=== PATIENT | male | born 1980 | race Caucasian/White ===

== ENCOUNTER 2019-01-01 18:50 | Inpatient (IN) | payer BC ==
[2019-01-01 19:45] LABS: #Basophils 0.1 thou/uL (0.0-0.2); #Lymphocytes 2.2 thou/uL (1.20-3.40); #Monocytes 0.4 thou/uL (0.11-0.59); #Neutrophils 5.1 thou/uL (1.40-6.50); %Basophils 0.7 % (0.0-1.0); %Eosinophils 0.6 % (0.0-10.0); %Lymphocytes 27.6 % (21.0-51.0); %Monocytes 5.7 % (0.0-10.0); %Neutrophils 65.5 % (42.0-75.0); Hemoglobin 14.8 g/dL (14.0-18.0); Mean Corpuscular HGB CONC 34.2 g/dL (32.0-36.0); Mean Corpuscular Hemoglobin 30.5 pg (27.0-31.0); Mean Corpuscular Volume 89.3 fL (78.0-98.0); Mean Platelet Volume 7.1 fL (7.4-10.4); Platelet Count 289 thou/uL (130-400); RBC Distribution Width 11.6 % (11.5-14.5); Red Blood Cell (RBC) Count 4.86 mill/uL (4.70-6.10); White Blood Cell (WBC) Count 7.8 thou/uL (4.8-10.8)
[2019-01-01 20:07] LABS: ALT (SGPT) 26 U/L (8-55); AST (SGOT) 19 U/L (5-34); Albumin 4.4 g/dL (3.5-5.0); Alkaline Phosphatase 57 U/L (40-150); Anion Gap 14 mmol/L (10-20); BUN (Urea Nitrogen) 10 mg/dL (8.9-20.6); Bilirubin, Total 0.8 mg/dL (0.2-1.2); CK (CPK) 228 U/L (30-200); Calc. Creatinine Clearance 0 mL/min (70-130); Carbon Dioxide 24 mmol/L (22-29); Chloride 103 mmol/L (98-107); Estimated GFR-MDRD Greater than 90; Globulin 2.3 g/dL (2.4-3.5); Glucose 103 mg/dL (70-105); Potassium 3.8 mmol/L (3.5-5.1); Protein, Total 6.7 g/dL (6.0-8.3)
[2019-01-01 20:18] LABS: Sodium 137 mmol/L (136-145)
[2019-01-01 20:34] LABS: CKMB 5.8 ng/mL (0-6.6)
[2019-01-01] MEDS ORDERED: Aspirin Chewable 81 MG TAB ONE (20:35)
--- NOTE | 2019-01-01 20:46 | RAD ---
RADIOGRAPH CHEST 1 VIEW: DATE: 01/01/2019 HISTORY: Chest pain FINDINGS: There is no airspace density, pulmonary edema, or pneumothorax. The lateral costophrenic angles are n ot effaced. IMPRESSION: No acute pulmonary findings.
[2019-01-01] MEDS ORDERED: Enoxaparin Sodium 100 MG/ML SYRINGE ONE (21:35)
[2019-01-01 23:17] LABS: Troponin I 0.876 ng/mL (< 0.028)
[2019-01-02] MEDS ORDERED: Acetaminophen 650 MG Suppository PR PRN (00:05)
[2019-01-02] MEDS ORDERED: Acetaminophen 325 MG TAB PO PRN ×2 (00:05→16:30)
[2019-01-02] MEDS ORDERED: Nitroglycerin 0.4 MG TAB (25 Tab Bottle) SL PRN (00:05)
[2019-01-02] MEDS ORDERED: Ondansetron PF 4 MG/2 ML Vial IVP PRN ×2 (00:05→16:30)
[2019-01-02] MEDS ORDERED: Ondansetron ODT 4 MG TAB PO PRN (00:05)
[2019-01-02] MEDS ORDERED: Atorvastatin Calcium 40 MG TAB PO SCH (00:30)
[2019-01-02 01:03] LABS: Amphetamine Not Detected (NotDetected); Barbiturates Screen Not Detected (NotDetected); Benzodiazepine Screen Not Detected (NotDetected); Cocaine Metabolite Screen Not Detected (NotDetected); Medtox Control Line Valid? VALID (VALID); Medtox Reader # READER 4; Methadone Not Detected (NotDetected); Methamphetamine Not Detected (NotDetected); Opiate Screen Not Detected (NotDetected); Oxycodone Screen Not Detected (NotDetected); Phencyclidine (PCP) Not Detected (NotDetected); THC/Cannabinoid Screen Not Detected (NotDetected); Tricyclic Screen Not Detected (NotDetected)
[2019-01-02 02:24] LABS: Troponin I 0.956 ng/mL (< 0.028)
--- NOTE | 2019-01-02 04:25 | HP ---
PRIMARY CARE DOCTOR: Julio Frazier MD CODE STATUS: Full code. TIME OF EVALUATION: 11:30 p.m. CHIEF COMPLAINT: Chest pain. HISTORY OF PRESENT ILLNESS: This is a 38-year-old male patient with past medical history of no significant medical problems except for his father having heart attack at the age of early 50s. The patient presented with chest pain in the middle of the chest. No specific radiation. The pain was rated as 8/10, associated with exertion. The patient was lifting some boxes and improved when the patient was sitting. Since he has family history, he decided to come to the hospital. In the ER, he was found to have troponin in the range of 0.4 to 0.8 and given the strong history and lack of any other risk factors with positive troponin, the patient has been admitted for known STEMI with consult for Cardiology, possible intervention in the morning. REVIEW OF SYSTEMS: CONSTITUTIONAL: No fever, chills, or generalized weakness. RESPIRATORY: No cough, sputum production, or shortness of breath/ CARDIOVASCULAR: Chest pain. No palpitation. GASTROINTESTINAL: No nausea, vomiting, diarrhea or abdominal pain. MANAGER COMMERCIAL: No dizziness, headache or feeling lightheaded. GENITOURINARY: No burning on urination. EXTREMITIES: No leg swelling. All other systems were reviewed and negative except for the findings mentioned above. PAST MEDICAL HISTORY: The patient has no significant history. PAST SURGICAL HISTORY: Hernia repair. FAMILY HISTORY: Reviewed and no contributory to current presentation. PSYCHIATRIC HISTORY: No previous psych history. SOCIAL HISTORY: No drugs. No alcohol. No smoking history. ALLERGIES: KNOWN ALLERGIES TO PENICILLIN. REPORTED MEDICATIONS: Nexium. PHYSICAL EXAMINATION: VITAL SIGNS: On presentation, blood pressure 148/98 with heart rate 68, respiratory rate was 20, temperature 98.4. GENERAL APPEARANCE: The patient is alert and oriented, not in acute distress. HEENT: Eyes; normal conjunctivae. Moist oral mucosa. Anicteric. No JVD. RESPIRATORY: Bilateral air entry. No rales. No wheezes. Symmetric expansion. CARDIOVASCULAR: Normal rate, regular rhythm. No murmurs. No gallop. No edema. ABDOMEN: Soft. Normal bowel sounds. MUSCULOSKELETAL: Baseline range of motion and strength. SKIN: Warm and intact. No pallor. No rash. No redness. Peripheral pulses are present. Capillary refill seems to be intact. NEURO: No evidence of any new focal weakness. Cranial nerves seems to be intact. PSYCH: The patient is in good mood. No anxiety. Optimal judgment. DIAGNOSTIC STUDIES: EKG was reviewed, the patient has normal sinus rhythm with sinus arrhythmia at the rate of 66, WA 150, QRS 98, QT corrected 410. Chest x- ray showed no acute pulmonary findings. LABORATORY DATA: Reviewed. The patient has white count of 7.8, hemoglobin 14.9 , MCV 89, platelet count 289. Chemistry was normal except for troponin of 0.4, 0.8, 0.956. CK 225 and urine screen was negative. ASSESSMENT AND PLAN: The patient will be placed in the hospital with following medical problems: 1. Jqo-ZB-rlpjzkgiz myocardial infarction. The patient has received Lovenox. The patient has received statins, aspirin, we will consult Cardiology. We will continue to monitor on tele. Most likely will go for cardiac cath in the morning. 2. Deep venous thrombosis prophylaxis. 3. High blood pressure. The patient has no history of hypertension, likely due to acute distress. We will monitor, we will treat accordingly. Job ID: [id number] [facility]
[2019-01-02 06:19] LABS: #Eosinphils 0.1 thou/uL (0.0-0.7); #Lymphocytes 1.6 thou/uL (1.20-3.40); #Monocytes 0.5 thou/uL (0.11-0.59); #Neutrophils 3.9 thou/uL (1.40-6.50); %Basophils 0.5 % (0.0-1.0); %Eosinophils 0.9 % (0.0-10.0); %Lymphocytes 26.7 % (21.0-51.0); %Monocytes 7.5 % (0.0-10.0); %Neutrophils 64.3 % (42.0-75.0); Hemoglobin 15.3 g/dL (14.0-18.0); Mean Corpuscular HGB CONC 33.8 g/dL (32.0-36.0); Mean Corpuscular Hemoglobin 30.6 pg (27.0-31.0); Mean Corpuscular Volume 90.5 fL (78.0-98.0); Mean Platelet Volume 7.1 fL (7.4-10.4); Platelet Count 261 thou/uL (130-400); RBC Distribution Width 11.8 % (11.5-14.5); Red Blood Cell (RBC) Count 4.99 mill/uL (4.70-6.10); White Blood Cell (WBC) Count 6.1 thou/uL (4.8-10.8)
[2019-01-02 06:51] LABS: Anion Gap 13 mmol/L (10-20); BUN (Urea Nitrogen) 8 mg/dL (8.9-20.6); Calc. Creatinine Clearance 170 mL/min (70-130); Calcium 9.3 mg/dL (7.8-10.44); Carbon Dioxide 23 mmol/L (22-29); Chloride 105 mmol/L (98-107); Estimated GFR-MDRD Greater than 90; Glucose 108 mg/dL (70-105); Potassium 3.9 mmol/L (3.5-5.1); Sodium 137 mmol/L (136-145)
[2019-01-02] MEDS ORDERED: Aspirin 325 mg Enteric Coated Tablet PO SCH (09:00)
[2019-01-02] MEDS ORDERED: Diazepam 5 MG TAB PO SCH (09:45)
[2019-01-02] MEDS ORDERED: Communication Order-Pharmacy FS SCH ×2 (09:45→11:47)
[2019-01-02] MEDS ORDERED: Sodium Chloride 0.9% 1,000 ML IV SCH ×2 (09:45)
[2019-01-02 10:00] LABS: Cardiac Risk 5.2 (Less than 4.5)
[2019-01-02] MEDS ORDERED: Fentanyl 100 MCG/2 ML VIAL ONE ×2 (10:32→16:47)
[2019-01-02] MEDS ORDERED: Midazolam HCl 2 mg/2 ml Vial ONE (10:32)
[2019-01-02] MEDS ORDERED: Calcium Chloride 1 GM/10 ML Abboject SYRINGE ONE (10:43)
[2019-01-02] MEDS ORDERED: PHENYLEPHRINE-NS 100 MCG/ML 10 ML SYRINGE ONE ×2 (10:43→15:00)
[2019-01-02] MEDS ORDERED: Vecuronium 10 MG VIAL ONE ×2 (10:43→11:41)
[2019-01-02] MEDS ORDERED: Thrombin 5000 UNITS/5 ML VIAL ONE (10:43)
[2019-01-02] MEDS ORDERED: Aminocaproic Acid 5 GM/20 ML VIAL ONE (10:43)
[2019-01-02] MEDS ORDERED: Protamine Sulfate 250 MG/25 ML VIAL ONE (10:43)
[2019-01-02] MEDS ORDERED: Heparin 5,000 UNITS/ML VIAL ONE (10:43)
[2019-01-02] MEDS ORDERED: PROPOFOL 200 MG/20 ML VIAL ONE (10:43)
[2019-01-02] MEDS ORDERED: Sodium Bicarb 50 MEQ/50 ML VIAL ONE (10:43)
[2019-01-02] MEDS ORDERED: Nitroglycerin 50 MG/250 ML BOT ONE (10:43)
[2019-01-02] MEDS ORDERED: Papaverine 60 MG/2 ML VIAL ONE (10:43)
[2019-01-02] MEDS ORDERED: Cardioplegic Soln 1,000 ML BAG ONE (10:43)
[2019-01-02] MEDS ORDERED: Heparin 30,000 units/30 ml VIAL ONE (10:43)
[2019-01-02] MEDS ORDERED: Heparin 10,000 UNITS/1 ML VIAL ONE (11:14)
[2019-01-02] MEDS ORDERED: Nitroglycerin 2% Ointment 1 INCH/1 GM Packet ONE (11:30)
[2019-01-02] MEDS ORDERED: Bupivacaine HCl 0.5%/Epinephrine 1:200,000/PF 30 ml Vial ONE (11:32)
[2019-01-02] MEDS ORDERED: Albumin 5% 0 ML ONE (11:32)
[2019-01-02] MEDS ORDERED: Dexamethasone 4 mg/ml Vial ONE (11:32)
[2019-01-02] MEDS ORDERED: Iopamidol 370 76% 100 ML VIAL ONE (11:39)
[2019-01-02] MEDS ORDERED: Heparin 25,000 units/D5W 500 ML ONE (11:40)
[2019-01-02] MEDS ORDERED: Fentanyl 250 MCG/5 ML VIAL ONE (11:40)
[2019-01-02] MEDS ORDERED: Norepinephrine 8 MG/0.9% NS 250 ML ONE (11:41)
[2019-01-02] MEDS ORDERED: Midazolam HCl 5 mg/5 ml Vial ONE (11:41)
[2019-01-02] MEDS ORDERED: Dexmedetomidine 200 MCG/2 ML VIAL ONE (11:41)
[2019-01-02] MEDS ORDERED: Heparin 10,000 UNITS/1 ML VIAL 30,000 UNITS in Sodium Chloride 0.9% 1,000 ML FS SCH (11:45)
[2019-01-02] MEDS ORDERED: Milrinone 10 MG/10 ML VIAL ONE (12:07)
[2019-01-02] MEDS ORDERED: Clindamycin/D5W 900 MG in Premix Bag 1 BAG IVPB SCH (12:15)
[2019-01-02] MEDS ORDERED: Guaifenesin DM 100-10/5 ML UDCUP PO PRN (16:30)
[2019-01-02] MEDS ORDERED: Hetastarch 6% 500 ML 500 ML IVPB PRN (16:30)
[2019-01-02] MEDS ORDERED: Mag-Al 1200 mg/1200 mg/30 ML UDCUP PO PRN (16:30)
[2019-01-02] MEDS ORDERED: Nitroglycerin 50 MG/250 ML BOT 250 ML IVPB PRN (16:30)
[2019-01-02] MEDS ORDERED: Magnesium 2 GM/50 ML 2 GM in Premix Bag 1 BAG IVPB SCH (16:30)
[2019-01-02] MEDS ORDERED: Levofloxacin 500 mg/D5W 750 MG in Premix Bag 1 BAG IVPB SCH (16:30)
[2019-01-02] MEDS ORDERED: Fentanyl 100 MCG/2 ML VIAL SLOW IVP PRN (16:30)
[2019-01-02] MEDS ORDERED: Potassium Chloride 20 MEQ/100 ML PREMIX BAG IVPB PRN (16:30)
[2019-01-02] MEDS ORDERED: D5 1/2 NS w/20 mEq KCL 1,000 ML IV SCH (16:30)
[2019-01-02] MEDS ORDERED: hydrALAZINE 20 MG/ML VIAL SLOW IVP PRN (16:30)
[2019-01-02] MEDS ORDERED: Norepinephrine 8 MG/0.9% NS 250 ML IVPB PRN (16:30)
[2019-01-02] MEDS ORDERED: Bisacodyl 10 MG SUPP PR PRN (16:30)
[2019-01-02] MEDS ORDERED: Promethazine HCl 25 MG/ML VIAL IM PRN (16:30)
[2019-01-02] MEDS ORDERED: Bisacodyl 5 MG TAB PO PRN (16:30)
--- NOTE | 2019-01-02 16:48 | RAD ---
Chest AP view INDICATION: Status post open-heart surgery COMPARISON: January 01, 2019 FINDINGS: Lungs:There are areas of subsegmental volume loss within the right upper lobe, right lower lobe and l eft midlung. Cardiac silhouette pulmonary vasculature:There is moderate to prominent cardiomegaly with mild pulmon kvng vascular congestion there is new midline sternotomy. Pleural spaces:There are small bilateral pleural effusions Upper abdomen:No abnormality seen. Osseous structures: No acute osseous abnormality. Additional findings:There is a new right subclavian central venous catheter projecting to the level o f the right atrium. There is an overlying mediastinal drain. There is a left-sided thoracostomy tube. IMPRESSION: 1. Interval postsurgical change of a CABG. 2. Cardiomegaly pulmonary vascular congestion and small bilateral pleural effusions raises suspicion for mild CHF or volume overload. Continued follow-up is recommended. 3. No pneumothorax 4. Tubes and lines as above
[2019-01-02 16:54] LABS: Mean Corpuscular HGB CONC 34.8 g/dL (32.0-36.0); Mean Corpuscular Hemoglobin 31.3 pg (27.0-31.0); Mean Corpuscular Volume 89.9 fL (78.0-98.0); Mean Platelet Volume 7.2 fL (7.4-10.4); Platelet Count 225 thou/uL (130-400); RBC Distribution Width 11.6 % (11.5-14.5); Red Blood Cell (RBC) Count 4.47 mill/uL (4.70-6.10); White Blood Cell (WBC) Count 20.3 thou/uL (4.8-10.8)
--- NOTE | 2019-01-02 16:55 | CON ---
DATE OF CONSULTATION: 01/02/2019 REASON FOR CONSULTATION: Chest pain with gji-PD-kflffbfgk myocardial infarction. HISTORY OF PRESENT ILLNESS: Mr. Rojas is a 38-year-old gentleman, who had severe episode of chest pain yesterday afternoon where he was at work doing moderate exertion and he had a feeling of "my chest being ripped open." He came to the emergency room. He was found to have normal EKG, but have increased troponin levels. The patient's pain has not recurred since he has been here. He did receive Lovenox yesterday as well as aspirin and a statin dose. Past history is negative for any major cardiac operations or procedures. He has been active and healthy. The patient, only medication, was taking proton pump inhibitor for esophageal reflux. PAST MEDICAL HISTORY: Esophageal reflux. REVIEW OF SYSTEMS: CONSTITUTIONAL: No significant weight gain or loss. VISION: No changes. HEARING: No changes. PULMONARY: No cough or wheezing. GASTROINTESTINAL: No nausea, vomiting, or diarrhea. SKIN: No rashes. NEUROLOGIC: No unilateral weakness or numbness. PSYCHIATRIC: No unusual depression or anxiety. PAST SURGICAL HISTORY: Hernia repair. PSYCHIATRIC HISTORY: Negative. SOCIAL HISTORY: No drugs or alcohol. He smoked a few years ago, but quit a few years ago. No tobacco at all now. ALLERGIES: PENICILLIN. PHYSICAL EXAMINATION: GENERAL: This is a pleasant young man, resting comfortably, in no distress. VITAL SIGNS: Blood pressure 136/82, pulse 85 and regular. HEENT: Eyes; sclerae nonicteric. Mouth; mucous membranes moist. NECK: Supple. No lymphadenopathy. LUNGS: Clear. No wheezing, rales, or rhonchi. CARDIAC: Normal S1. Normal S2. There is no murmur, rub, or gallop. ABDOMEN: Soft, nontender. EXTREMITIES: No clubbing or cyanosis or edema. SKIN: Warm and dry. PSYCHIATRIC: Mood and affect, normal. NEUROLOGIC: Grossly normal. PERIPHERAL: He has normal pulses posterior tibial and dorsalis pedis bilaterally. PERTINENT LABORATORY DATA: EKG was normal, but the troponin peaked at 0.956. ASSESSMENT: 1. Ujz-HT-wovpyjmyi myocardial infarction. 2. Drug screen was negative. 3. Otherwise, low risk factor profile, although we do not know his cholesterol. PLAN: 1. Check cholesterol. 2. Proceed to cardiac catheterization. Discussed risk of stroke, heart attack, iodine allergy, loss of blood supply to leg or kidney, stent thrombosis, stent restenosis. He understands and wished to proceed. Job ID: [id number]
[2019-01-02 16:57] LABS: Actual Bicarbonate (HCO3a) 20.9 mEq/L (22-28); Base Excess (BEa) -4.6 mEq/L (-2.0 to +3.0); CO2 Tension 40.1 mmHg (35.0-45.0); O2 Tension (PaO2) 188.5 mmHg (80.0-100.0); pH, Arterial 7.34 (7.35-7.45)
[2019-01-02 16:58] LABS: ALV-art Gradient 117.875 (0-20); Carboxyhemoglobin (COHb) 0.9 gm% (0.0-3.0); Hemoglobin (Hb) 14.1 g/dL (14.0-18.0); Puncture Site ALINE
[2019-01-02 16:59] LABS: INR-International Normal Ratio 1.4; PTT 28.4 SEC (22.9-36.1); Prothrombin Time 16.8 SEC (12.0-14.7)
[2019-01-02] MEDS: Fentanyl 100 MCG/2 ML VIAL SLOW IVP PRN ×4 (16:59→22:29)
[2019-01-02] MEDS ORDERED: Morphine 2 MG/ML SYRINGE SLOW IVP PRN (17:00)
[2019-01-02] MEDS: Ketorolac Tromethamine 30 MG/ML VIAL IVP SCH ×2 (17:01→23:57)
[2019-01-02] MEDS ORDERED: Dextrose 5% in Water 1,000 ML IV PRN (17:02)
[2019-01-02] MEDS ORDERED: HUMULIN R 100 UNITS in Sodium Chloride 0.9% 100 ML IVPB SCH (17:02)
[2019-01-02] MEDS ORDERED: Dextrose 50% Abboject 50 ML SYRINGE SLOW IVP PRN (17:02)
[2019-01-02 17:15] LABS: Band 5 % (5-11); Eosinophils 1 % (0-10); Lymphocytes 2 % (21-51); MDiff Complete? YES; Monocytes 2 % (0-10); Neutrophil 90 % (42-75); Platelet Morphology Comment Appears Adequate
[2019-01-02 17:17] LABS: Anion Gap 15 mmol/L (10-20); BUN (Urea Nitrogen) 8 mg/dL (8.9-20.6); Calc. Creatinine Clearance 179 mL/min (70-130); Calcium 7.7 mg/dL (7.8-10.44); Carbon Dioxide 21 mmol/L (22-29); Chloride 108 mmol/L (98-107); Estimated GFR-MDRD Greater than 90; Glucose 155 mg/dL (70-105); Potassium 3.6 mmol/L (3.5-5.1); Sodium 140 mmol/L (136-145)
[2019-01-02] MEDS: Clindamycin/D5W 900 MG in Premix Bag 1 BAG IVPB SCH ×2 (17:28→23:58)
--- NOTE | 2019-01-02 19:09 | CON ---
DATE OF CONSULTATION: 01/02/2019 REASON FOR CONSULTATION: Evaluate patient for emergency coronary artery bypass grafting. HISTORY OF PRESENT ILLNESS: Mr. Rojas is a 38-year-old gentleman, who presented yesterday evening with chest pain and heaviness. He has a family history in his father of coronary artery disease. At the time of evaluation in the emergency department, his troponin was 0.87. This has risen to 0.9. EKG was normal. He was admitted with uma-UC-kidrnqcmo myocardial infarction. He was seen today by Cardiology, who urgently took him to the sleep lab technologist. He has been found to have an ejection fraction of approximately 30% to 35%. His LAD diagonal system is nearly occluded. He has 70% lesion of the proximal right coronary artery. I have been asked to see him to take him for emergency coronary artery bypass grafting. PAST MEDICAL HISTORY: None. PAST SURGICAL HISTORY: Hernia repair. SOCIAL HISTORY: He does not use alcohol. He smoked up until about five years ago. ALLERGIES: PENICILLIN. MEDICATIONS: At home, none. REVIEW OF SYSTEMS: Not performed due to the urgency of the situation. PHYSICAL EXAMINATION: GENERAL: This is a well-developed, well-nourished man, resting comfortably in the recovery area without chest pain or shortness of breath. VITAL SIGNS: Height 5 feet and 8 inches, weight is 210 pounds. BSA is 2.14. Heart rate is 80 and regular and blood pressure is 136/82. HEENT: Sclerae are nonicteric. Pupils are equal and round bilaterally. NECK: Supple without bruit. CHEST: Clear bilaterally. HEART: Rhythm is regular without murmur. ABDOMEN: Soft and nontender. EXTREMITIES: No edema. VASCULAR: Palpable carotid, radial, femoral, and dorsalis pedis pulses bilaterally. He has a femoral sheath in the right common femoral artery. PSYCHIATRIC: The patient is awake, alert, and oriented to person, place, and time. LABORATORY DATA: Of note; potassium is 3.9, creatinine is 0.80, hemoglobin is 15.3, and platelet count is 261,000. ASSESSMENT AND PLAN: This is a pleasant 38-year-old gentleman with dnl-GP-euxeareub myocardial infarction and severe three-vessel disease with depressed left ventricular function. I have recommended emergency coronary artery bypass grafting with left internal mammary artery to left anterior descending, saphenous vein graft to diagonal and right coronary. He is agreeable to proceed and signed. Job ID: [id number]
[2019-01-02] MEDS: HYDROcodone/Acetaminophen 5/325 mg Tablet PO PRN ×2 (19:58→23:58)
[2019-01-02] MEDS: Atorvastatin Calcium 40 MG TAB PO SCH (20:00)
[2019-01-02] MEDS: Insulin Regular 300 UNITS/3 ML VIAL SC PRN ×2 (20:11→23:58)
[2019-01-02] MEDS ORDERED: Famotidine/PF 20 mg/2ml Vial SLOW IVP SCH (21:00)
--- NOTE | 2019-01-02 23:52 | OP ---
DATE OF PROCEDURE: 01/02/2019 PREOPERATIVE DIAGNOSIS: Coronary artery disease. POSTOPERATIVE DIAGNOSIS: Coronary artery disease. PROCEDURES PERFORMED: Coronary artery bypass grafting x3. 1. Left internal mammary artery to 2.5 mm distal LAD-good conduit and target. 2. Reverse saphenous vein to 2.0 mm diagonal-good conduit and target. 3. Reverse saphenous vein to 2.5 mm RCA-good conduit and target. ANESTHESIA: General endotracheal-Dr. Gopal Perez. PUMP TIME: 65 minutes. CROSS-CLAMP TIME: 35 minutes. LOW CORE TEMPERATURE: 34 degrees Celsius. BASEBALL GLOVE SHAPER: Tad Gamez. DRAINS: 24-Albanian chest tube x2. DRIPS: None. TRANSFUSIONS: None. DESCRIPTION OF PROCEDURE: After consent was obtained, the patient was brought to the operating room and placed in supine position on the operating table. Appropriate lines and monitors were placed, and general endotracheal anesthesia was induced. Chest and legs were prepped and draped in usual sterile fashion. Utilizing an endoscopic technique, the left thigh greater saphenous vein was harvested. The wound was closed in layers. Median sternotomy was performed. Left internal mammary artery was harvested as a pedicle graft. The patient was systemically heparinized. The distal pedicle was divided and infused with papaverine. Thymic fat and pericardium were divided with electrocautery. Pericardial stay sutures were placed. Aortic and atrial cannulation was performed. After adequate heparinization, retrograde prime was performed. The patient was placed on cardiopulmonary bypass. Distal targets were marked. Aortic cross-clamp was applied and an antegrade sanguineous cardioplegic arrest was obtained. 1 L of antegrade cold [place] cardioplegia was given. Topical cold solution was used. Reverse saphenous vein was anastomosed to the distal RCA in an end-to-side fashion with running 7-0 Prolene suture. Anastomosis was tested and was hemostatic. Reverse saphenous vein was anastomosed to the diagonal in an end-to-side fashion with running 7-0 Prolene suture. Anastomosis was tested and was hemostatic. Mammary artery was brought through a window in pericardium and anastomosed to the distal LAD in an end-to-side fashion with running 7-0 Prolene suture. Prior to completion of all three anastomoses, a 1.5 mm probe passed distally without difficulty. Antegrade flow was reestablished down the mammary artery with good occluding anastomosis and good distal flow. Pedicle was secured with interrupted 6-0 Prolene suture. Cross-clamp was removed, and partial occluding clamp placed. Saphenous veins were anastomosed to individual punch sites with running 6-0 Prolene suture. Partial occluding clamp was removed and graft was deaired. Anastomoses were inspected for hemostasis, which was good. The patient was warmed and weaned from cardiopulmonary bypass. After resumption of sinus rhythm, good hemodynamics, temperature greater than 36.5, bypass was discontinued. Transfusions were given. Protamine was administered. Decannulation performed. Pursestring suture was secured. The 24-Albanian chest tubes were placed in the mediastinum. The sternum was treated with vancomycin paste. After adequate hemostasis had been obtained, the sternum was closed with #7 wire, 3 in the manubrium, 1 in the distal sternum. Four zip ties were placed in the body of the sternum. The sternum was treated with platelet rich plasma. Wires were twisted and buried. Zip ties were tightened and cut. Wounds were irrigated and treated with platelet poor plasma and closed in multiple layers. Needle, sponge, and instrument counts were all reported as correct at the end of the procedure. The patient tolerated the procedure well, was transferred to the intensive care unit in stable, but critical condition. Job ID: [id number]
[2019-01-03] MEDS: Fentanyl 100 MCG/2 ML VIAL SLOW IVP PRN ×2 (01:10→05:29)
[2019-01-03] MEDS: HYDROcodone/Acetaminophen 5/325 mg Tablet PO PRN ×4 (03:51→21:01)
[2019-01-03 04:55] LABS: #Lymphocytes 0.8 thou/uL (1.20-3.40); #Monocytes 1.4 thou/uL (0.11-0.59); #Neutrophils 11.5 thou/uL (1.40-6.50); %Basophils 0.2 % (0.0-1.0); %Eosinophils 0.2 % (0.0-10.0); %Lymphocytes 5.4 % (21.0-51.0); %Monocytes 10.5 % (0.0-10.0); %Neutrophils 83.8 % (42.0-75.0); Hemoglobin 12.6 g/dL (14.0-18.0); Mean Corpuscular HGB CONC 33.5 g/dL (32.0-36.0); Mean Corpuscular Hemoglobin 30.2 pg (27.0-31.0); Mean Corpuscular Volume 90.2 fL (78.0-98.0); Mean Platelet Volume 7.4 fL (7.4-10.4); Platelet Count 227 thou/uL (130-400); RBC Distribution Width 11.7 % (11.5-14.5); Red Blood Cell (RBC) Count 4.16 mill/uL (4.70-6.10); White Blood Cell (WBC) Count 13.7 thou/uL (4.8-10.8)
[2019-01-03 05:16] LABS: Anion Gap 11 mmol/L (10-20); BUN (Urea Nitrogen) 9 mg/dL (8.9-20.6); Calc. Creatinine Clearance 164 mL/min (70-130); Calcium 7.7 mg/dL (7.8-10.44); Carbon Dioxide 25 mmol/L (22-29); Chloride 106 mmol/L (98-107); Estimated GFR-MDRD Greater than 90; Glucose 125 mg/dL (70-105); Potassium 4.1 mmol/L (3.5-5.1); Sodium 138 mmol/L (136-145)
[2019-01-03] MEDS: Clindamycin/D5W 900 MG in Premix Bag 1 BAG IVPB SCH ×2 (05:30→12:18)
[2019-01-03 06:25] VITALS: BMI 32.6
[2019-01-03] MEDS: Ketorolac Tromethamine 30 MG/ML VIAL IVP SCH ×3 (06:47→17:51)
--- NOTE | 2019-01-03 07:24 | RAD ---
EXAM: Single view of the chest HISTORY: Status post open heart surgery COMPARISON: 01/02/2019 FINDINGS: Single view of the chest shows an enlarged but stable cardiomediastinal silhouette. The pa tient is status post sternotomy. The central venous catheter and chest tubes are unchanged in position. There is no evidence of consolidation, mass, or pleural effusion. The bones are unremarkabl e. IMPRESSION: Cardiomegaly without evidence of acute cardiopulmonary disease
--- NOTE | 2019-01-03 08:22 | PRG ---
DATE OF SERVICE: 01/03/2019 SUBJECTIVE: Mr. Rojas is doing great. He is extubated, sitting up in the bed. OBJECTIVE: VITAL SIGNS: Blood pressure is 118/74. He was previously on Levophed, but he is off now. Pulse is 128, in sinus. LUNGS: Clear. CARDIAC: Tachycardic. ABDOMEN: Soft, nontender. EXTREMITIES: No edema. ASSESSMENT: 1. Status post urgent coronary bypass grafting for severe coronary disease, status post non-ST elevation myocardial infarction with depressed left ventricular function, anterior wall, probably "stunned.". 2. Sinus tachycardia. PLAN: 1. Start LOW-dose beta blockers, increase as tolerated. 2. Remove femoral sheath. Job ID: [id number]
[2019-01-03] MEDS: Famotidine 20 MG TAB PO SCH ×2 (08:32→21:01)
[2019-01-03] MEDS: Aspirin 325 MG TAB PO SCH (08:32)
[2019-01-03] MEDS: Metoprolol Tartrate 25 MG TAB PO SCH ×2 (08:36→21:01)
[2019-01-03] MEDS: Magnesium 2 GM/50 ML 2 GM in Premix Bag 1 BAG IVPB SCH (08:36)
--- NOTE | 2019-01-03 13:46 | PDOC.PN ---
- Subjective Encounter Start Date: 01/03/19 Encounter Start Time: 13:40 Subjective: f/u for NSTEMI and s/p 3v CABG POD #1. States some soreness -: and tolerating diet. - Objective Resuscitation Status - Order Detail: 01/02/19 00:05 Resuscitation Status Routine Resuscitation Status: FULL: Full Resuscitation MAR Reviewed: Yes Vital Signs & Weight: Vital Signs (12 hours) Temp Pulse Ox 01/03/19 12:00 98.3 F 01/03/19 08:00 98.4 F 91 L 01/03/19 04:00 98.4 F Weight Weight 215 lb 6.266 oz Most Recent Monitor Data Heart Rate from ECG 107 NIBP 98/60 NIBP BP-Mean 72 Respiration from ECG 16 SpO2 95 I&O: 01/02/19 01/03/19 01/04/19 06:59 06:59 06:59 Intake Total 50 1374.2 1050 Output Total 620 960 245 Balance -570 414.2 805 Result Diagrams: 01/03/19 04:30 01/03/19 04:30 Additional Labs: Accuchecks 01/03/19 01/02/19 01/02/19 04:40 23:44 20:08 POC Glucose 119 H 140 H 149 H 01/02/19 01/02/19 01/02/19 16:41 15:53 14:58 POC Glucose 147 H 149 H 179 H 01/02/19 01/02/19 13:51 12:58 POC Glucose 139 H 144 H Laboratory Tests 01/02/19 01/02/19 16:38 22:24 WBC 20.3 H Hgb 14.0 14.0 Radiology Reviewed by me: Yes (PCXR - post-surgical changes, lines/tubes in position) EKG Reviewed by me: Yes (Tele - sinus tachycardia) Phys Exam - Physical Examination Constitutional: NAD HEENT: PERRLA, sclera anicteric, oral pharynx no lesions Neck: no nodes, no JVD, supple, full ROM CT's in place Respiratory: no wheezing, no rales, no rhonchi, clear to auscultation bilateral tachycardia S1, S2 Cardiovascular: no significant murmur, no rub, gallop Gastrointestinal: soft, non-tender, no distention, positive bowel sounds Musculoskeletal: no edema, pulses present Neurological: normal sensation, moves all 4 limbs Psychiatric: A&O x 3 Skin: normal turgor, cap refill <2 seconds Deviation from normal: Fernandez with clear urine Dx/Plan (1) NSTEMI (non-ST elevated myocardial infarction) Code(s): I21.4 - NON-ST ELEVATION (NSTEMI) MYOCARDIAL INFARCTION Status: Acute Comment: Continue ASA, Metoprolol, Lipitor (2) 3-vessel CAD Status: Chronic Comment: See above (3) Ischemic cardiomyopathy Code(s): I25.5 - ISCHEMIC CARDIOMYOPATHY Status: Acute Comment: EF 35%, serial Echo, re-vascularization with CABG, DEJA-i prior to d/c (4) History of coronary artery bypass graft x 3 Code(s): Z95.1 - PRESENCE OF AORTOCORONARY BYPASS GRAFT Status: Acute Comment: POD #1, continue routine post-CABG protocol, pain control, DVT ppx - Plan continue antibiotics, PT/OT, social worker school, respiratory therapy, DVT proph w/ SCDs Continue supportive mgmt -: Continue ASA, Lipitor, Metoprolol -: Pain control with Morphine/[place]/Toradol -: PT for mobilization -: AM lab: BMP, CBC * .
--- NOTE | 2019-01-03 19:52 | CON ---
DATE OF CONSULTATION: 01/03/2019 SERVICE: Pulmonary Medicine. REASON FOR CONSULTATION: ICU patient. HISTORY OF PRESENT ILLNESS: The patient is a 38-year-old white male with no significant comorbidities, who presented to the hospital with onset of chest discomfort on 02 Jan 2019. Ultimately, he was discovered to have a non-ST- elevation MN. Cardiac catheterization showed operative disease. He went for a coronary artery bypass graft x3 vessels. His postoperative course was unremarkable. He extubated quite well yesterday afternoon per protocol. He denies any current fevers, chills, nausea, or vomiting. He is coughing a little bit, but not bringing up any sputum. He has a lack of appetite and mild nausea, but no vomiting. He is passing gas. Otherwise, there has been no interval change to his condition. He is proceeding as expected. PAST MEDICAL HISTORY: Coronary artery disease. PAST SURGICAL HISTORY: Herniorrhaphy. SOCIAL HISTORY: Negative for alcohol, tobacco, or illicit drug use. He has no exposure to chemicals, dust, asbestos, or tuberculosis. FAMILY HISTORY: Dad had coronary artery disease at a young age. ALLERGIES: PENICILLIN. MEDICATIONS: List of inpatient medications was reviewed. No specific updates were made at this time. REVIEW OF SYSTEMS: General; head, ears, eyes, nose, throat; cardiovascular; respiratory; GI; ; musculoskeletal; neurologic; and skin are negative except as mentioned in the HPI. PHYSICAL EXAMINATION: VITAL SIGNS: Afebrile, pulse 111, blood pressure 93/60, respirations 21, and saturation 95% on 0.5 L nasal cannula. GENERAL: The patient is awake and alert, in no apparent distress. LUNGS: Decent air entry. There is not much of a prolonged expiratory phase or wheezing present. Rhonchi are noted, but clear with cough. HEART: Normal rate and regular. ABDOMEN: Soft, nontender, and nondistended. Bowel sounds are positive. MUSCULOSKELETAL: No cyanosis or clubbing. No pitting in the bilateral lower extremities. NEUROLOGIC: Grossly nonfocal. LABORATORY DATA: WBC 13.7 and downtrending, hemoglobin is roughly stable at 12.6. Platelets 227,000. INR 1.4. A pH 7.34, pCO2 of 40, pO2 of 180 on 50% FiO2 at that time. Basic metabolic profile is essentially unremarkable. Calcium is 7.7. Liver function studies are unremarkable. Urine drug screen is negative. IMAGING STUDIES: Chest x-ray shows thoracostomy tubes are in good position. Sternotomy wires are noted. There is a slightly widened carinal angle. Lung volumes are low, which accentuate our interstitial markings, though I do not see a discrete infiltrate. ASSESSMENT: 1. Acute hypoxic respiratory failure, improving. 2. Coronary artery disease, status post coronary artery bypass graft x3 vessels, postop day #1. 3. Gastroesophageal reflux disease. DISCUSSION AND PLAN: The patient is progressing as expected. We will continue our perioperative support. We will start our mobilization efforts today. Pulmonary/Critical Care will continue to follow along in this location. We will screen for sleep apnea in the morning. 70 minutes have been devoted to this patient in various activities. I personally reviewed all imaging studies and laboratory data noted within this document. For fifty percent of this time, I was interacting with the patient at the bedside or coordinating care with the care team. For the remainder of the time I was immediately available to the patient in the hospital unit. Job ID: [id number] MTDD
[2019-01-03] MEDS: Atorvastatin Calcium 40 MG TAB PO SCH (21:03)
[2019-01-04] MEDS: HYDROcodone/Acetaminophen 5/325 mg Tablet PO PRN ×5 (01:01→20:12)
[2019-01-04 04:18] LABS: #Eosinphils 0.1 thou/uL (0.0-0.7); #Lymphocytes 1.6 thou/uL (1.20-3.40); #Monocytes 0.9 thou/uL (0.11-0.59); #Neutrophils 8.6 thou/uL (1.40-6.50); %Basophils 0.3 % (0.0-1.0); %Eosinophils 0.5 % (0.0-10.0); %Lymphocytes 14.4 % (21.0-51.0); %Monocytes 8.3 % (0.0-10.0); %Neutrophils 76.6 % (42.0-75.0); Hemoglobin 11.4 g/dL (14.0-18.0); Mean Corpuscular HGB CONC 33.8 g/dL (32.0-36.0); Mean Corpuscular Hemoglobin 30.9 pg (27.0-31.0); Mean Corpuscular Volume 91.3 fL (78.0-98.0); Mean Platelet Volume 7.3 fL (7.4-10.4); Platelet Count 179 thou/uL (130-400); RBC Distribution Width 11.7 % (11.5-14.5); White Blood Cell (WBC) Count 11.2 thou/uL (4.8-10.8)
[2019-01-04 04:36] LABS: Anion Gap 9 mmol/L (10-20); BUN (Urea Nitrogen) 12 mg/dL (8.9-20.6); Calc. Creatinine Clearance 180 mL/min (70-130); Calcium 7.9 mg/dL (7.8-10.44); Carbon Dioxide 25 mmol/L (22-29); Chloride 105 mmol/L (98-107); Estimated GFR-MDRD Greater than 90; Glucose 116 mg/dL (70-105); Sodium 135 mmol/L (136-145)
[2019-01-04] MEDS: Ketorolac Tromethamine 30 MG/ML VIAL IVP SCH ×4 (05:19→18:14)
[2019-01-04] MEDS: Famotidine 20 MG TAB PO SCH ×2 (08:14→20:12)
[2019-01-04] MEDS: Aspirin 325 MG TAB PO SCH (08:15)
[2019-01-04] MEDS: Magnesium 2 GM/50 ML 2 GM in Premix Bag 1 BAG IVPB SCH (08:15)
[2019-01-04] MEDS: Metoprolol Tartrate 25 MG TAB PO SCH ×2 (08:15→20:12)
[2019-01-04] MEDS ORDERED: Metoprolol Tartrate 25 MG TAB PO SCH ×2 (09:00→09:30)
[2019-01-04] MEDS ORDERED: Aspirin 325 mg Enteric Coated Tablet PO SCH (09:00)
[2019-01-04] MEDS ORDERED: Milk Of Magnesia 30 ML UDCUP PO PRN (09:34)
[2019-01-04] MEDS ORDERED: Mag-Al 1200 mg/1200 mg/30 ML UDCUP PO PRN (09:34)
[2019-01-04] MEDS ORDERED: Zolpidem Tartrate 5 MG TAB PO PRN (09:34)
[2019-01-04] MEDS ORDERED: diphenhydrAMINE 25 MG CAP PO PRN (09:34)
[2019-01-04] MEDS ORDERED: Mineral Oil ENEMA PR PRN (09:34)
[2019-01-04] MEDS ORDERED: Guaifenesin DM 100-10/5 ML UDCUP PO PRN (09:34)
[2019-01-04] MEDS ORDERED: Bisacodyl 10 MG SUPP PR PRN (09:34)
[2019-01-04] MEDS ORDERED: Nitroglycerin 0.4 MG TAB (25 Tab Bottle) SL PRN (09:34)
[2019-01-04] MEDS ORDERED: Artificial Tears 18 DROP/0.9 ML EA EYE PRN (09:34)
[2019-01-04] MEDS ORDERED: Bisacodyl 5 MG TAB PO PRN (09:34)
--- NOTE | 2019-01-04 15:41 | PRG ---
DATE OF SERVICE: 01/04/2019 SERVICE: Pulmonary Medicine. INTERVAL HISTORY: The patient has very severe nocturia x2 or x3. He frequently falls asleep during the daytime with the sleepiness index of roughly 12. He snores continuously and his has suggested that he holds his breath while sleeping. Prior to being on Nexium, he used to wake up choking or gasping in the middle of the night. From a respiratory standpoint, things are going pretty well. He is breathing comfortably. He continues to have ongoing chest discomfort and is on some medication for that. PHYSICAL EXAMINATION: VITAL SIGNS: Afebrile, pulse 95, blood pressure 104/60, respirations 18, and saturation 97% on 1 L nasal cannula. GENERAL: The patient is awake and alert, in no apparent distress. LUNGS: Decent air entry. Dependent crackles are minimal. There is no prolonged expiratory phase or wheezing present. HEART: Normal rate and regular. ABDOMEN: Soft, nontender, nondistended. Bowel sounds are positive. MUSCULOSKELETAL: No cyanosis or clubbing. No pitting in the bilateral lower extremities. NEUROLOGIC: Grossly nonfocal. LABORATORY DATA: WBC 11.2, hemoglobin 11.4, platelets 179,000. Sodium 135. Basic metabolic profile is otherwise unremarkable with a creatinine that is downtrending to 0.7. ASSESSMENT: 1. Acute hypoxic respiratory failure, improving. 2. Coronary artery disease, status post coronary artery bypass graft x3 vessels, postoperative day 2. 3. Obstructive sleep apnea, suspected. DISCUSSION AND PLAN: The patient is progressing as expected. At this point, he has no further requirements for inpatient Pulmonary Critical Care opinion, and I will sign off. In the outpatient setting, the patient will follow up with me, and we will set him up with a polysomnogram. Job ID: [id number] [facility]
--- NOTE | 2019-01-04 16:35 | PDOC.PN ---
- Subjective Encounter Start Date: 01/04/19 Encounter Start Time: 16:30 Subjective: f/u s/p CABG x 3v POD #2. Doing ok overall and some chest pain. -: Ambulating ok. Voiding regularly. - Objective Resuscitation Status - Order Detail: 01/02/19 00:05 Resuscitation Status Routine Resuscitation Status: FULL: Full Resuscitation MAR Reviewed: Yes Vital Signs & Weight: Vital Signs (12 hours) Temp Pulse Pulse Pulse Resp BP BP 01/04/19 12:55 97.8 F 95 18 01/04/19 11:46 97 96 104/64 114/71 01/04/19 10:18 98.2 F 92 18 01/04/19 08:00 98.3 F BP Pulse Ox Pulse Ox Pulse Ox 01/04/19 12:55 104/60 97 01/04/19 11:46 97 97 01/04/19 10:18 109/72 100 01/04/19 08:00 96 Weight Weight 3.552 oz Most Recent Monitor Data Heart Rate from ECG 93 NIBP 95/70 NIBP BP-Mean 78 Respiration from ECG 24 SpO2 96 I&O: 01/03/19 01/04/19 01/05/19 06:59 06:59 06:59 Intake Total 1374.2 1742 350 Output Total 960 1010 75 Balance 414.2 732 275 Result Diagrams: 01/04/19 04:09 01/04/19 04:09 Additional Labs: Laboratory Tests 01/02/19 01/02/19 16:38 22:24 WBC 20.3 H Hgb 14.0 14.0 EKG Reviewed by me: Yes (Tele - SR) Phys Exam - Physical Examination Constitutional: NAD HEENT: PERRLA, sclera anicteric, oral pharynx no lesions Neck: no nodes, no JVD, supple, full ROM Respiratory: no wheezing, no rales, no rhonchi, clear to auscultation bilateral S1, S2 Cardiovascular: RRR, no significant murmur, no rub, gallop Gastrointestinal: soft, non-tender, no distention, positive bowel sounds Musculoskeletal: no edema, pulses present Neurological: normal sensation, moves all 4 limbs Psychiatric: A&O x 3 Skin: normal turgor, cap refill <2 seconds Dx/Plan (1) NSTEMI (non-ST elevated myocardial infarction) Code(s): I21.4 - NON-ST ELEVATION (NSTEMI) MYOCARDIAL INFARCTION Status: Acute Comment: Continue ASA, Metoprolol, Lipitor (2) 3-vessel CAD Status: Chronic Comment: See above (3) Ischemic cardiomyopathy Code(s): I25.5 - ISCHEMIC CARDIOMYOPATHY Status: Acute Comment: EF 35%, serial Echo, re-vascularization with CABG, DEJA-i prior to d/c (4) History of coronary artery bypass graft x 3 Code(s): Z95.1 - PRESENCE OF AORTOCORONARY BYPASS GRAFT Status: Acute Comment: POD #2, continue routine post-CABG protocol, pain control, DVT ppx - Plan PT/OT, social professionals, out of bed/ambulate, DVT proph w/SCDs Stable currently -: Continue ASA/Lipitor/Metoprolol -: OOB/ambulate -: Pain control as clinically indicated -: Wean off O2 supplementation * .
[2019-01-04] MEDS: Atorvastatin Calcium 40 MG TAB PO SCH (20:12)
[2019-01-05] MEDS: Ketorolac Tromethamine 30 MG/ML VIAL IVP SCH ×4 (00:53→17:29)
[2019-01-05] MEDS: Famotidine 20 MG TAB PO SCH ×2 (08:51→21:32)
[2019-01-05] MEDS: Metoprolol Tartrate 25 MG TAB PO SCH ×2 (08:53→21:32)
[2019-01-05] MEDS: Aspirin 325 MG TAB PO SCH (08:53)
--- NOTE | 2019-01-05 09:44 | PDOC.PN ---
- Subjective Encounter Start Date: 01/05/19 Encounter Start Time: 09:40 Subjective: f/u NSTEMI and s/p CABG x 3v POD #3. Feels ok overall except for -: being sore. Tolerating po intake. Ambulated with PT without difficulty. - Objective Resuscitation Status - Order Detail: 01/02/19 00:05 Resuscitation Status Routine Resuscitation Status: FULL: Full Resuscitation MAR Reviewed: Yes Vital Signs & Weight: Vital Signs (12 hours) Temp Pulse Resp BP Pulse Ox 01/05/19 03:55 97.5 F L 92 20 113/75 92 L Weight Weight 211 lb 12.8 oz Most Recent Monitor Data Heart Rate from ECG 93 NIBP 95/70 NIBP BP-Mean 78 Respiration from ECG 24 SpO2 96 I&O: 01/04/19 01/05/19 01/06/19 06:59 06:59 06:59 Intake Total 1742 1950 Output Total 1010 1425 Balance 732 525 Result Diagrams: 01/04/19 04:09 01/04/19 04:09 Additional Labs: Laboratory Tests 01/02/19 01/02/19 16:38 22:24 WBC 20.3 H Hgb 14.0 14.0 EKG Reviewed by me: Yes (Tele - SR) Phys Exam - Physical Examination Constitutional: NAD HEENT: PERRLA, sclera anicteric, oral pharynx no lesions Neck: no nodes, no JVD, supple, full ROM Chest incision CDI Respiratory: no wheezing, no rales, no rhonchi, clear to auscultation bilateral S1, S2 Cardiovascular: RRR, no significant murmur, no rub, gallop Gastrointestinal: soft, non-tender, no distention, positive bowel sounds Musculoskeletal: no edema, pulses present Neurological: normal sensation, moves all 4 limbs Psychiatric: A&O x 3 Skin: normal turgor, cap refill <2 seconds Dx/Plan (1) NSTEMI (non-ST elevated myocardial infarction) Code(s): I21.4 - NON-ST ELEVATION (NSTEMI) MYOCARDIAL INFARCTION Status: Acute Comment: Continue ASA, Metoprolol, Lipitor (2) 3-vessel CAD Status: Chronic Comment: See above (3) Ischemic cardiomyopathy Code(s): I25.5 - ISCHEMIC CARDIOMYOPATHY Status: Acute Comment: EF 35%, serial Echo, re-vascularization with CABG, DEJA-i prior to d/c (4) History of coronary artery bypass graft x 3 Code(s): Z95.1 - PRESENCE OF AORTOCORONARY BYPASS GRAFT Status: Acute Comment: POD #3, continue routine post-CABG protocol, pain control, DVT ppx - Plan PT/OT, rn social work, out of bed/ambulate, DVT proph w/SCDs Stable currently -: Continue ASA/Lipitor/Metoprolol -: OOB with PT -: Pain control with [place] -: Likely home in 24h * .
[2019-01-05] MEDS: Atorvastatin Calcium 40 MG TAB PO SCH (21:31)
[2019-01-05] MEDS: HYDROcodone/Acetaminophen 5/325 mg Tablet PO PRN (21:31)
[2019-01-06] MEDS: Aspirin 325 MG TAB PO SCH (08:10)
[2019-01-06] MEDS: Famotidine 20 MG TAB PO SCH (08:11)
[2019-01-06] MEDS ORDERED: Lisinopril 2.5 MG TAB PO SCH (09:00)
[2019-01-06 10:28] LABS: Actual Bicarbonate (HCO3a) 20.6 mEq/L (22-28); Analyzer IN Cardio OR; Base Excess (BEa) -3.2 mEq/L (-2.0 to +3.0); CO2 Tension 33.7 mmHg (35.0-45.0); Calcium, Ionized 1.05 mmol/L (1.12-1.30); Carboxyhemoglobin (COHb) 0.7 gm% (0.0-3.0); Hemoglobin (Hb) 14.8 g/dL (14.0-18.0); O2 Tension (PaO2) 434.5 mmHg (80.0-100.0); Potassium - ABG Lab 3.74 mmol/L (3.70-5.30)
[2019-01-06 10:28] LABS: Analyzer IN Cardio OR; Base Excess (BEa) -3.5 mEq/L (-2.0 to +3.0); Calcium, Ionized 1.07 mmol/L (1.12-1.30); Carboxyhemoglobin (COHb) 0.5 gm% (0.0-3.0); Hemoglobin (Hb) 14.6 g/dL (14.0-18.0); O2 Tension (PaO2) 363.1 mmHg (80.0-100.0); Potassium - ABG Lab 3.44 mmol/L (3.70-5.30); pH, Arterial 7.41 (7.35-7.45)
[2019-01-06 10:29] LABS: Actual Bicarbonate (HCO3v) 22 mEq/L (22-28); Analyzer IN Cardio OR; Base Excess -4.9 mEq/L (-2.0 to +3.0); Calcium, Ionized 0.98 mmol/L (1.16-1.32); Chloride (ABG LAB) 105 mmol/L (98-106); Hemoglobin (Hb) 11.2 g/dL (13.2-17.3); Potassium - ABG Lab 4.26 mmol/L (3.70-5.30); Sodium 133.9 mmol/L (133-146)
[2019-01-06 10:29] LABS: Actual Bicarbonate (HCO3a) 23.9 mEq/L (22-28); Analyzer IN Cardio OR; Base Excess (BEa) -2.1 mEq/L (-2.0 to +3.0); CO2 Tension 46.1 mmHg (35.0-45.0); Calcium, Ionized 0.96 mmol/L (1.12-1.30); Carboxyhemoglobin (COHb) 0.3 gm% (0.0-3.0); Hemoglobin (Hb) 11.1 g/dL (14.0-18.0); O2 Tension (PaO2) 425.6 mmHg (80.0-100.0); Potassium - ABG Lab 4.21 mmol/L (3.70-5.30); pH, Arterial 7.33 (7.35-7.45)
[2019-01-06 10:29] LABS: Actual Bicarbonate (HCO3a) 22.9 mEq/L (22-28); Analyzer IN Cardio OR; Base Excess (BEa) -3.1 mEq/L (-2.0 to +3.0); CO2 Tension 45.3 mmHg (35.0-45.0); Calcium, Ionized 0.96 mmol/L (1.12-1.30); Carboxyhemoglobin (COHb) 0.3 gm% (0.0-3.0); Hemoglobin (Hb) 11.2 g/dL (14.0-18.0); O2 Tension (PaO2) 357.4 mmHg (80.0-100.0); Potassium - ABG Lab 4.32 mmol/L (3.70-5.30); pH, Arterial 7.32 (7.35-7.45)
[2019-01-06 10:30] LABS: Actual Bicarbonate (HCO3a) 21.9 mEq/L (22-28); Analyzer IN Cardio OR; Base Excess (BEa) -3.6 mEq/L (-2.0 to +3.0); CO2 Tension 41.4 mmHg (35.0-45.0); Calcium, Ionized 1.05 mmol/L (1.12-1.30); Carboxyhemoglobin (COHb) 0.4 gm% (0.0-3.0); Hemoglobin (Hb) 13.1 g/dL (14.0-18.0); O2 Tension (PaO2) 186.3 mmHg (80.0-100.0); Potassium - ABG Lab 3.77 mmol/L (3.70-5.30); pH, Arterial 7.34 (7.35-7.45)
[2019-01-06 10:32] LABS: Puncture Site ALINE
[2019-01-06 10:32] LABS: Puncture Site ALINE
[2019-01-06 10:33] LABS: Puncture Site ALINE
[2019-01-06 10:33] LABS: Puncture Site ALINE
[2019-01-06 10:33] LABS: Puncture Site ALINE
[2019-01-06 12:45] VITALS: BP 125/82; TEMP 98.3
--- NOTE | 2019-01-06 16:43 | EKG ---
Test Reason : Blood Pressure : / mmHG Vent. Rate : 095 BPM Atrial Rate : 095 BPM P-R Int : 158 ms QRS Dur : 094 ms QT Int : 454 ms P-R-T Axes : 046 042 100 degrees QTc Int : 570 ms Normal sinus rhythm Possible Left atrial enlargement Prolonged QT Abnormal ECG When compared with ECG of 01-JAN-2019 19:00, (Unconfirmed) ST now depressed in Anterolateral leads T wave inversion now evident in Anterolateral leads QT has lengthened Confirmed by DR. Robi HARP ([id number]) on 01/06/2019 4:43:19 PM Referred By: CHEYANNE Confirmed By:DR. Robi HARP
--- NOTE | 2019-01-06 18:11 | PRG ---
DATE OF SERVICE: 01/06/2019 SUBJECTIVE: Mr. Rojas is doing well. No chest pain or pressure. OBJECTIVE: VITAL SIGNS: Blood pressure is in the low 100 range. Pulse is in the high 90s. LUNGS: Clear. CARDIAC: Normal S1, normal S2. ABDOMEN: Soft and nontender. EXTREMITIES: No edema. IMAGING DATA: Echocardiogram showed ejection fraction is improving, now at 40% to 45% with mild apical hypokinesis. CONCLUSION: 1. Status post [id number] myocardial infarction. 2. Multivessel coronary artery disease including proximal LAD stenosis and diagonal branch lesion with mid right coronary artery stenosis. Did well with surgery. PLAN: 1. Continue metoprolol 50 mg a day, dose can be increased later. Blood pressure is relatively low now. 2. Lisinopril 2.5 mg daily. To be seen back in the office. Job ID: [id number] MTDD
--- NOTE | 2019-01-06 22:26 | DIS ---
DATE OF ADMISSION: 01/01/2019 DATE OF DISCHARGE: 01/06/2019 DIAGNOSES: 1. Non-ST elevation myocardial infarction. 2. Coronary artery disease. PROCEDURES: 1. Cardiac catheterization. 2. Emergency coronary artery bypass grafting x3: a. Left internal mammary artery to LAD. b. Reverse saphenous vein to diagonal. c. Reverse saphenous vein to distal RCA. DESCRIPTION OF HOSPITAL STAY: Mr. Rojas was admitted with chest pain, underwent cardiac catheterization due to positive enzymes and was found to have critical left and right main coronary artery stenosis. He was taken to the operating room on emergent basis for bypass as above. Postoperatively, he has done well. He has had no rhythm disturbances. He has progressed as expected from a physical therapy standpoint. At the time of discharge, he is ambulatory, tolerating a regular diet, having good bowel and bladder function. Incisions are clean, dry without signs of infection. DISCHARGE MEDICATIONS: 1. Aspirin 325 mg daily. 2. Lipitor 40 mg at bedtime. 3. Zestril 2.5 mg daily. 4. Toprol-XL 50 mg daily. FOLLOWUP: He will follow up with me in 2 weeks, Dr. Orr in a month. Job ID: [id number]
--- NOTE | 2019-01-08 04:44 | DIS ---
DATE OF ADMISSION: 01/01/2019 DATE OF DISCHARGE: 01/06/2019 PRIMARY CARE PHYSICIAN: Dr. Julio Frazier. DISCHARGE DISPOSITION: Home. PRIMARY DISCHARGE DIAGNOSES: 1. Anterior non ST-segment elevated myocardial infarction. 2. Multi-vessel coronary artery disease status post 3-vessel bypass. 3. Dyslipidemia. DISCHARGE MEDICATIONS: Include; 1. Metoprolol-XL 50 mg daily. 2. Lisinopril 2.5 mg daily. 3. [place] 5/325 q.4 as needed. 4. Lipitor 40 mg at bedtime. 5. Aspirin 325 mg daily. 6. Nexium 20 mg daily. PROCEDURES DONE DURING THE ADMISSION: The patient had a cardiac catheterization which showed 95% proximal LAD stenosis, 90% stenosis in the diagonal ostial branch and 70% RCA stenosis, and the LVEF was calculated at 35% and the apical wall was akinetic. The patient also had an echocardiogram, demonstrated an ejection fraction estimated at 40% to 45%. The apex was hypokinetic. CODE STATUS: Full code. ALLERGIES: PENICILLINS. HOSPITAL COURSE: Mr. Rojas is a pleasant 38-year-old gentleman who presented to the emergency room with complaints of chest pain. He describes the pain as in the middle of his chest with no radiation. It was, however, associated with exertion. He was evaluated in the ER and there was concern that he was suffering an NSTEMI due to elevated troponins. Cardiology was consulted and he went urgently to cardiac catheterization. He was found to have 3-vessel coronary artery disease. Vascular Surgery was consulted and he underwent 3-vessel bypass. He had an uneventful postoperative course and was able to be discharged home on 01/06/2019, to have close outpatient followup. Job ID: [id number]
== END 2019-01-06 15:26 | disposition home or self-care (01) | DRG 233 ==
LOC: ERS 18:50 → 2NO 22:58 → CCU 01-02 13:46 → 2NO 01-04 10:19
PROVIDERS: ADMIT Hospitalist; ATTEND Hospitalist
PROC: 02100Z9 Bypass Coronary Artery, One Artery from Left Internal Mammary, Open Approach (ICD-10-PCS; principal; 2019-01-02)
PROC: 4A023N7 Measurement of Cardiac Sampling and Pressure, Left Heart, Percutaneous Approach (ICD-10-PCS; 2019-01-02)
PROC: 021109W Bypass Coronary Artery, Two Arteries from Aorta with Autologous Venous Tissue, Open Approach (ICD-10-PCS; 2019-01-02)
PROC: 06BQ4ZZ Excision of Left Saphenous Vein, Percutaneous Endoscopic Approach (ICD-10-PCS; 2019-01-02)
PROC: 5A1221Z Performance of Cardiac Output, Continuous (ICD-10-PCS; 2019-01-02)
PROC: B2111ZZ Fluoroscopy of Multiple Coronary Arteries using Low Osmolar Contrast (ICD-10-PCS; 2019-01-02)
PROC: B2151ZZ Fluoroscopy of Left Heart using Low Osmolar Contrast (ICD-10-PCS; 2019-01-02)
DX: I21.4 Non-ST elevation (NSTEMI) myocardial infarction (principal); J96.01 Acute respiratory failure with hypoxia; Z88.0 Allergy status to penicillin; R03.0 Elevated blood-pressure reading, without diagnosis of hypertension; I25.10 Atherosclerotic heart disease of native coronary artery without angina pectoris; I25.5 Ischemic cardiomyopathy; K21.9 Gastro-esophageal reflux disease without esophagitis
CPT/HCPCS: 36415; 36416; 36430; 71045; 76000; 76942; 80048; 80053; 80061; 80306; 82550; 82553; 82805; 83690; 83880; 84484; 85025; 85347; 85610; 85730; 86850; 86900; 86901; 93005; 93010; 93306; 93458; 93798; 96372; 99152; C1769; J0670; J0690; J1100; J1644; J1650; J1815; J1885; J1956; J2250; J2260; J2405; J2440; J2704; J2720; J3010; J3370; J3475; J3480; J3490; J7050; P9045; Q9967; S0017; S0028